=== PATIENT | female | born 1990 | race American Indian/Alaskan Native ===

== ENCOUNTER 2017-04-17 10:19 | Emergency (ER) | payer BC, OTHER ==
--- NOTE | 2017-04-17 11:09 | Emergency Department Report ---
Chief Complaint: Psych Stated Complaint: MENTAL HEALTH PROBLEMS, DEPRESSION Time Seen by Provider: 04/17/17 11:05 - HPI History of Present Illness: Patient here and was brought to the hospital by her aunt. Aunt reports that patient is very depressed and she's been depressed for a while but depression is getting worse over the last 2 days. Patient denies any suicide or homicide ideation. She says she feels very depressed. And is requesting that patient be evaluated and that patient be seen by mental health provider and Aunt wants to make sure that she is fair when they're talking to the patient. - ROS Review of Systems: All systems are negative unless stated in HPI above - Exam Vital Signs: Vital Signs 04/17/17 10:52 Temperature 99.1 F Pulse Rate 91 H Respiratory 18 Rate Blood Pressure 117/81 O2 Sat by Pulse 100 Oximetry Physical Exam: Gen.: This is a 26-year-old female well-nourished well-developed in no acute distress. Psych: Flat affect. Positive depression negative suicide or homicide ideation. MSE screening note: Focused history and physical exam performed. Due to findings the following was ordered: ED Medical Decision Making - Medical Decision Making MDM: Patient screened by provider in triage area. Appropriate protocol initiated and patient to be seen in main ED by ED Disposition for MSE Condition: Stable
[2017-04-17 12:03] LABS: Urine Drugs of Abuse Note Disclamer
[2017-04-17 12:19] LABS: Basophils % (Auto) 0.3 % (0.0-1.8); Eosinophils % (Auto) 2.1 % (0.0-4.3); Hematocrit 40.3 % (30.3-42.9); Hemoglobin 12.8 gm/dl (10.1-14.3); Mean Corpuscular HGB Conc 32 % (30-34); Mean Corpuscular Hemoglobin 27 pg (28-32); Mean Corpuscular Volume 84 fl (79-97); Platelet Count 211 K/mm3 (140-440); Red Blood Count 4.79 M/mm3 (3.65-5.03); Red Cell Distribution Width 13.9 % (13.2-15.2); White Blood Count 5.6 K/mm3 (4.5-11.0)
[2017-04-17 12:28] LABS: Bilirubin,Urine NEG (Negative); Blood,Urine NEG (Negative); Ketones,Urine 20 mg/dL (Negative); Leukocyte Esterase,Urine NEG (Negative); Mucus,Urine 3+ /HPF; Nitrite,Urine NEG (Negative); Protein,Urine <15 mg/dL mg/dL (Negative); WBC,Urine < 1.0 /HPF (0.0-6.0)
[2017-04-17 12:34] LABS: Anion Gap 19 mmol/L; BUN/Creatinine Ratio 11; Blood Urea Nitrogen 8 mg/dL (7-17); Calcium 9.5 mg/dL (8.4-10.2); Carbon Dioxide 20 mmol/L (22-30); Chloride 101.6 mmol/L (98-107); Glucose 82 mg/dL (65-100); Potassium 3.8 mmol/L (3.6-5.0); Sodium 137 mmol/L (137-145)
--- NOTE | 2017-04-17 13:28 | Emergency Department Report ---
ED General Adult HPI - General Chief complaint: Psych Stated complaint: MENTAL HEALTH PROBLEMS, DEPRESSION Time Seen by Provider: 04/17/17 11:05 Source: patient Mode of arrival: Ambulatory Limitations: No Limitations - History of Present Illness Initial comments: She is a 26-year-old female past mental history of depression who presents with depressed mood and feelings of worthlessness. Patient has been feeling down for all of her life. Patient states that she doesn't have any concrete plans to kill herself however she states that normally care if she was gone. Patient is with her aunt who is concerned about patient's depression. Patient states that she's never been on any medications for her depression but she comes to the emergency department because she would like to be on some medications. Patient denies having any nausea, abdominal pain or chest pain. Stress makes her depression worse and nothing makes it better. - Related Data Allergies Allergy/AdvReac Type Severity Reaction Status Date / Time No Known Allergies Allergy Unverified 04/17/17 10:52 ED Review of Systems ROS: Stated complaint: MENTAL HEALTH PROBLEMS, DEPRESSION Other details as noted in HPI Constitutional: denies: chills, fever Eyes: denies: eye pain, eye discharge, vision change ENT: denies: ear pain, throat pain Respiratory: denies: cough, shortness of breath, wheezing Cardiovascular: denies: chest pain, palpitations Endocrine: no symptoms reported Gastrointestinal: denies: abdominal pain, nausea, diarrhea Genitourinary: denies: urgency, dysuria, discharge Musculoskeletal: denies: back pain, joint swelling, arthralgia Skin: denies: rash, lesions Neurological: denies: headache, weakness, paresthesias Psychiatric: depression. denies: anxiety Hematological/Lymphatic: denies: easy bleeding, easy bruising ED Past Medical Hx - Past Medical History Previous Medical History?: Yes Additional medical history: Vaginal delivery x 1 - Surgical History Past Surgical History?: No - Social History Smoking Status: Current Every Day Smoker Substance Use Type: Alcohol, Marijuana ED Physical Exam - General Limitations: No Limitations General appearance: alert, in no apparent distress - Head Head exam: Present: atraumatic, normocephalic - Eye Eye exam: Present: normal appearance - ENT ENT exam: Present: mucous membranes moist - Neck Neck exam: Present: normal inspection - Respiratory Respiratory exam: Present: normal lung sounds bilaterally. Absent: respiratory distress - Cardiovascular Cardiovascular Exam: Present: regular rate, normal rhythm. Absent: systolic murmur, diastolic murmur, rubs, gallop - GI/Abdominal GI/Abdominal exam: Present: soft, normal bowel sounds - Extremities Exam Extremities exam: Present: normal inspection - Back Exam Back exam: Present: normal inspection - Neurological Exam Neurological exam: Present: alert, oriented X3 - Psychiatric Psychiatric exam: Present: normal affect, normal mood - Skin Skin exam: Present: warm, dry, intact, normal color. Absent: rash ED Course Vital Signs 04/17/17 10:52 Temperature 99.1 F Pulse Rate 91 H Respiratory 18 Rate Blood Pressure 117/81 O2 Sat by Pulse 100 Oximetry ED Medical Decision Making - Lab Data Result diagrams: 04/17/17 11:36 04/17/17 11:36 Lab Results 04/17/17 04/17/17 04/17/17 Range/Units 11:36 11:36 11:36 WBC 5.6 (4.5-11.0) K/mm3 RBC 4.79 (3.65-5.03) M/mm3 Hgb 12.8 (10.1-14.3) gm/dl Hct 40.3 (30.3-42.9) % MCV 84 (79-97) fl MCH 27 L (28-32) pg MCHC 32 (30-34) % RDW 13.9 (13.2-15.2) % Plt Count 211 (140-440) K/mm3 Lymph % (Auto) 24.9 (13.4-35.0) % [place] % (Auto) 11.3 H (0.0-7.3) % Eos % (Auto) 2.1 (0.0-4.3) % Baso % (Auto) 0.3 (0.0-1.8) % Lymph # 1.4 (1.2-5.4) K/mm3 [place] # 0.6 (0.0-0.8) K/mm3 Eos # 0.1 (0.0-0.4) K/mm3 Baso # 0.0 (0.0-0.1) K/mm3 Seg Neutrophils % 61.4 (40.0-70.0) % Seg Neutrophils # 3.4 (1.8-7.7) K/mm3 Sodium 137 (137-145) mmol/L Potassium 3.8 (3.6-5.0) mmol/L Chloride 101.6 (98-107) mmol/L Carbon Dioxide 20 L (22-30) mmol/L Anion Gap 19 mmol/L BUN 8 (7-17) mg/dL Creatinine 0.7 (0.7-1.2) mg/dL Estimated GFR > 60 ml/min BUN/Creatinine Ratio 11 % Glucose 82 (65-100) mg/dL Calcium 9.5 (8.4-10.2) mg/dL Urine Color (Yellow) Urine Turbidity (Clear) Urine pH (5.0-7.0) Ur Specific [place] (1.003-1.030) Urine Protein (Negative) mg/dL Urine Glucose (UA) (Negative) mg/dL Urine Ketones (Negative) mg/dL Urine Blood (Negative) Urine Nitrite (Negative) Urine Bilirubin (Negative) Urine Urobilinogen (<2.0) mg/dL Ur Leukocyte Esterase (Negative) Urine WBC (Auto) (0.0-6.0) /HPF Urine RBC (Auto) (0.0-6.0) /HPF U Epithel Cells (Auto) (0-13.0) /HPF Calcium Oxalate Crystal Hyaline Casts /LPF Urine Mucus /HPF Urine HCG, Qual (Negative) Urine Opiates Screen Urine Methadone Screen Ur Barbiturates Screen Ur Phencyclidine Scrn Ur Amphetamines Screen U Benzodiazepines Scrn Urine Cocaine Screen U Marijuana (THC) Screen Drugs of Abuse Note Plasma/Serum Alcohol < 0.01 (0-0.07) gm% 04/17/17 04/17/17 Range/Units 11:58 11:58 WBC (4.5-11.0) K/mm3 RBC (3.65-5.03) M/mm3 Hgb (10.1-14.3) gm/dl Hct (30.3-42.9) % MCV (79-97) fl MCH (28-32) pg MCHC (30-34) % RDW (13.2-15.2) % Plt Count (140-440) K/mm3 Lymph % (Auto) (13.4-35.0) % [place] % (Auto) (0.0-7.3) % Eos % (Auto) (0.0-4.3) % Baso % (Auto) (0.0-1.8) % Lymph # (1.2-5.4) K/mm3 [place] # (0.0-0.8) K/mm3 Eos # (0.0-0.4) K/mm3 Baso # (0.0-0.1) K/mm3 Seg Neutrophils % (40.0-70.0) % Seg Neutrophils # (1.8-7.7) K/mm3 Sodium (137-145) mmol/L Potassium (3.6-5.0) mmol/L Chloride (98-107) mmol/L Carbon Dioxide (22-30) mmol/L Anion Gap mmol/L BUN (7-17) mg/dL Creatinine (0.7-1.2) mg/dL Estimated GFR ml/min BUN/Creatinine Ratio % Glucose (65-100) mg/dL Calcium (8.4-10.2) mg/dL Urine Color Yellow (Yellow) Urine Turbidity Clear (Clear) Urine pH 5.0 (5.0-7.0) Ur Specific [place] 1.028 (1.003-1.030) Urine Protein <15 mg/dl (Negative) mg/dL Urine Glucose (UA) Neg (Negative) mg/dL Urine Ketones 20 (Negative) mg/dL Urine Blood Neg (Negative) Urine Nitrite Neg (Negative) Urine Bilirubin Neg (Negative) Urine Urobilinogen 4.0 (<2.0) mg/dL Ur Leukocyte Esterase Neg (Negative) Urine WBC (Auto) < 1.0 (0.0-6.0) /HPF Urine RBC (Auto) 4.0 (0.0-6.0) /HPF U Epithel Cells (Auto) 3.0 (0-13.0) /HPF Calcium Oxalate Crystal 3+ Hyaline Casts 1 /LPF Urine Mucus 3+ /HPF Urine HCG, Qual Negative (Negative) Urine Opiates Screen Presumptive negative Urine Methadone Screen Presumptive negative Ur Barbiturates Screen Presumptive negative Ur Phencyclidine Scrn Presumptive negative Ur Amphetamines Screen Presumptive negative U Benzodiazepines Scrn Presumptive positive Urine Cocaine Screen Presumptive negative U Marijuana (THC) Screen Presumptive negative Drugs of Abuse Note Disclamer Plasma/Serum Alcohol (0-0.07) gm% - Medical Decision Making Cdx: Major depressive disorder Ddx: Substance induced mood disorder, electrolyte abnormality, hypothyroidism I will get CBC, CMP, mental health consult I will sign a 1013 on this patient as patient has feelings of worthlessness and is a danger to herself until a psychiatrist clears her. Discussed plan with patient's on she agrees with plan. Critical care attestation.: If time is entered above; I have spent that time in minutes in the direct care of this critically ill patient, excluding procedure time. ED Disposition Clinical Impression: MDD (major depressive disorder) Qualifiers: Major depression recurrence: recurrent Active/Remission status: currently active Major depression episode severity: moderate Qualified Code(s): F33.1 - Major depressive disorder, recurrent, moderate Disposition: DC/TX-65 PSY HOSP/PSY UNIT Is pt being admited?: No Does the pt Need Aspirin: No Condition: Stable Referrals: PRIMARY CARE, [Primary Care Provider] - 3-5 Days
[2017-04-17 17:10] VITALS: BP 92/59
--- NOTE | 2017-04-17 20:53 | Emergency Department Report ---
Blank Doc - Documentation Documentation: I went to reevaluate this patient as the psychiatric team saw her and rescinded the 1013. The patient says that she has a long-standing and possibly worsening depression but she does not have any suicidal or homicidal ideations. She is awake, appropriate, AAO 3 without any deficits or signs of acute psychosis. I can respect the fact that she says that she is looking to get help and believes that she needs to be on some type of a medication for her depression. She will be given referrals for the [facility] facility. She lives with her aunt and says that she feels safe in that environment and feels that her family also feels safe and does provide some support to her. Her vital signs stable.
== END 2017-04-17 21:27 | disposition home or self-care (01) ==
LOC: ED 10:19 → EEVIPCON 10:19 → ED 21:27
DX: F32.9 Major depressive disorder, single episode, unspecified (principal); F17.210 Nicotine dependence, cigarettes, uncomplicated; F12.10 Cannabis abuse, uncomplicated
CPT/HCPCS: 36415; 80048; 80307; 81001; 81025; 85025; 99284; G0480; 80320

== ENCOUNTER 2017-04-19 19:03 | Emergency (ER) | payer OTHER ==
[2017-04-19 19:41] LABS: Basophils % (Auto) 0.4 % (0.0-1.8); Eosinophils % (Auto) 3.9 % (0.0-4.3); Hematocrit 37.9 % (30.3-42.9); Hemoglobin 12.4 gm/dl (10.1-14.3); Mean Corpuscular HGB Conc 33 % (30-34); Mean Corpuscular Hemoglobin 28 pg (28-32); Mean Corpuscular Volume 84 fl (79-97); Platelet Count 206 K/mm3 (140-440); White Blood Count 5.4 K/mm3 (4.5-11.0)
[2017-04-19 20:01] LABS: Anion Gap 18 mmol/L; BUN/Creatinine Ratio 17; Blood Urea Nitrogen 10 mg/dL (7-17); Calcium 9.2 mg/dL (8.4-10.2); Carbon Dioxide 23 mmol/L (22-30); Chloride 103.7 mmol/L (98-107); Glucose 85 mg/dL (65-100); Potassium 3.8 mmol/L (3.6-5.0); Sodium 141 mmol/L (137-145)
--- NOTE | 2017-04-20 00:04 | Emergency Department Report ---
HPI - General Chief Complaint: Psych Time Seen by Provider: 04/19/17 23:40 - HPI HPI: Room 12 The patient is a 26-year-old female presenting with the chief complaint suicidal ideation. Patient is to suicidal ideation intermittently for one week. When asked if she had a plan and the patient really said no but then stated she thought about slitting her wrists. Patient denies any active attempt at after trying to harm herself. Patient apparently came to the ED 2 days ago for the same and was placed under 1013 which was later rescinded. The patient's aunt (Jasmin Mcleod [phone]) has accompanied the patient to the ED Location: Mental state Duration: Intermittent times one week Quality: Suicidal Severity: Severe Modifying factors: [see above] Context: [see above] Mode of transportation: [not driving] ED Past Medical Hx - Past Medical History Previous Medical History?: Yes Hx Psychiatric Treatment: Yes (no formal diagnosis) Additional medical history: Vaginal delivery x 1 - Surgical History Past Surgical History?: No - Family History Family history: no significant - Social History Smoking Status: Current Every Day Smoker (1/2 pack per day) Substance Use Type: None (denies illicit drug use) ED Review of Systems ROS: Stated complaint: MENTAL HEALTH ISSUES Other details as noted in HPI Psychiatric: suicidal thoughts Physical Exam - Physical Exam Physical Exam: GENERAL: The patient is well-developed well-nourished female sitting on stretcher not appearing to be in acute distress. [] HEENT: Normocephalic. Atraumatic. Extraocular motions are intact. Patient has moist mucous membranes. NECK: Supple. Trachea midline. There is no nuchal rigidity CHEST/LUNGS: Clear to auscultation. There is no respiratory distress noted. HEART/CARDIOVASCULAR: Regular. There is no tachycardia. There is no gallop rub or murmur. ABDOMEN: Abdomen is soft, nontender. Patient has normal bowel sounds. There is no abdominal distention. SKIN: There is no rash. There is no edema. There is no diaphoresis. NEURO: The patient is awake, alert, and oriented. The patient is cooperative. The patient has normal speech and gait. MUSCULOSKELETAL: There is no evidence of acute injury. ED Medical Decision Making - Lab Data Result diagrams: 04/19/17 19:31 04/19/17 19:31 Laboratory Tests 04/19/17 04/19/17 04/19/17 19:31 19:31 19:31 WBC RBC Hgb Hct MCV MCH MCHC RDW Plt Count Lymph % (Auto) [place] % (Auto) Eos % (Auto) Baso % (Auto) Lymph # [place] # Eos # Baso # Seg Neutrophils % Seg Neutrophils # Sodium 141 Potassium 3.8 Chloride 103.7 Carbon Dioxide 23 Anion Gap 18 BUN 10 Creatinine 0.6 L Estimated GFR > 60 BUN/Creatinine Ratio 17 Glucose 85 Calcium 9.2 HCG, Qual Negative Salicylates Acetaminophen Plasma/Serum Alcohol < 0.01 04/19/17 04/20/17 04/20/17 19:31 00:03 00:03 WBC 5.4 RBC 4.50 Hgb 12.4 Hct 37.9 MCV 84 MCH 28 MCHC 33 RDW 14.0 Plt Count 206 Lymph % (Auto) 27.8 [place] % (Auto) 11.9 H Eos % (Auto) 3.9 Baso % (Auto) 0.4 Lymph # 1.5 [place] # 0.6 Eos # 0.2 Baso # 0.0 Seg Neutrophils % 56.0 Seg Neutrophils # 3.0 Sodium Potassium Chloride Carbon Dioxide Anion Gap BUN Creatinine Estimated GFR BUN/Creatinine Ratio Glucose Calcium HCG, Qual Salicylates < 0.3 L Acetaminophen < 15.0 Plasma/Serum Alcohol - Differential Diagnosis suicidal ideation Critical care attestation.: If time is entered above; I have spent that time in minutes in the direct care of this critically ill patient, excluding procedure time. ED Disposition Clinical Impression: Suicidal ideation Disposition: DC/TX-65 PSY HOSP/PSY UNIT Is pt being admited?: No Does the pt Need Aspirin: No Condition: Serious Referrals: PRIMARY CARE, [Primary Care Provider] - 3-5 Days Time of Disposition: 00:15 (awaiting acceptance)
[2017-04-20 12:46] LABS: Alanine Aminotransferase 8 units/L (7-56); Alkaline Phosphatase 75 units/L (35-129)
--- NOTE | 2017-04-20 12:46 | Consultation ---
History of Present Illness - Reason for Consult Consult date: 04/20/17 Reason for consult: Mental Health Evaluation Requesting physician: BALDEMAR CAIN - Chief Complaint Chief complaint: "I was crazy yesterday" - History of Present Psychiatric Illness The patient is a 26-year-old female presenting with the chief complaint suicidal ideation. Today patient is calm and cooperative during the assessment. She stated that the last couple weeks has been "weird." Initially the patient was seen on the Mar in the ER for depression. She was discharged with outpatient psy services information. She stated not sleeping for several days with racing thoughts. She stated experiencing this type of episode in the past with a feeling of being depressed on day 4 or 5. She stated that she cannot figure out what is wrong with her, so lately she has been suicidal. Currently, she denies SI's, but still have the thoughts. She denies HI's and AVH's. She denies a poor appetite. She denies recreational drug use and alcohol consumption (etoh). Medications and Allergies Allergies Allergy/AdvReac Type Severity Reaction Status Date / Time No Known Allergies Allergy Unverified 04/17/17 10:52 Home Medications Medication Instructions Recorded Confirmed Last Taken Type No Known Home Medications [No 04/20/17 04/20/17 Unknown History Reported Home Medications] Past psychiatric history - Past Medical History Past Medical History: other (Vaginal delivery x 1) Past Surgical History: No surgical history - past Psychiatric treatment and history psychiatric treatment history: Per the patient seen a therapist in the past. Fam psy hx of Bipolar DO. - Social History Social history: lives with family (11th grade education) Mental Status Exam - Vital signs Last Vital Signs Temp 99.1 F 04/20/17 09:04 Pulse 86 04/20/17 09:04 Resp 18 04/20/17 09:07 BP 105/64 04/20/17 09:04 Pulse Ox 96 04/20/17 09:07 - Exam Narrative exam: MSE: Appearance: calm, cooperative Behavior: regular eye contact Speech: regular rate and tone Mood: "okay" withdrawn Affect: congruent to mood Thought Process: circumstantial Thought Content: denies SI/HI's and AVH's Motor Activity: ambulatory Cognition: A/O x3 Insight: variable Judgment: variable Results Result Diagrams: 04/19/17 19:31 04/19/17 19:31 Abnormal lab results 04/19/17 04/19/17 04/20/17 Range/Units 19:31 19:31 00:03 [place] % (Auto) 11.9 H (0.0-7.3) % Creatinine 0.6 L (0.7-1.2) mg/dL Salicylates < 0.3 L (2.8-20.0) mg/dL All other labs normal. Assessment and Plan Assessment and plan: Impression: Bipolar DO. Today patient is calm and cooperative during the assessment. Patient has suicidal thoughts. DDx: R/O MDD Recommendation/Plan: Continue 1013 with placement to inpatient psy services. Start Depakote 500 mg PO BID for mood.
--- NOTE | 2017-04-21 10:29 | Progress Note ---
Subjective - Reason for Consult Consult date: 04/21/17 Reason for consult: Psychiatry Follow-up - Chief Complaint Chief complaint: "I feel better" The patient is a 26-year-old female presenting with the chief complaint suicidal ideation. Today patient is calm and cooperative during the assessment. She stated that she finally got a good night rest. She stated that she spoke with a family member and her child last night. She denies SI/HI's and AVH's. She denies any side effects of her medications. Mental Status Exam - Vital signs Last Vital Signs Temp 98.6 F 04/20/17 20:18 Pulse 81 04/20/17 20:18 Resp 18 04/20/17 20:18 BP 106/56 04/20/17 20:18 Pulse Ox 98 04/20/17 20:18 - Exam Narrative exam: MSE: Appearance: calm, cooperative Behavior: regular eye contact Speech: regular rate and tone Mood: "better" Affect: congruent to mood Thought Process: linear Thought Content: denies SI/HI's and AVH's Motor Activity: ambulatory Cognition: A/O x3 Insight: fair Judgment: fair Assessment and Plan Impression: Bipolar DO. Today patient is calm and cooperative during the assessment. DDx: R/O MDD Recommendation/Plan: Evaluate 1013 within 24 hours to determine proper dispo. Continue Depakote 500 mg PO BID for mood.
--- NOTE | 2017-04-22 16:26 | Progress Note ---
Subjective - Reason for Consult Consult date: 04/22/17 Reason for consult: psychiatric follow up - Chief Complaint Chief complaint: "I feel better" The patient is a 26-year-old female presenting with the chief complaint suicidal ideation. Today patient is calm and cooperative during the assessment. She says she needs to stay longer because she is sorting her thoughts. She talked about how she "snapped." She denies SI/HI's and AVH's. She denies any side effects of her medications. Mental Status Exam - Vital signs Last Vital Signs Temp 98.2 F 04/21/17 22:00 Pulse 80 04/21/17 22:00 Resp 16 04/21/17 22:00 BP 120/60 04/21/17 22:00 Pulse Ox 96 04/21/17 22:00 - Exam Narrative exam: MSE: Appearance: calm, cooperative Behavior: regular eye contact Speech: regular rate and tone Mood: "better" Affect: congruent to mood Thought Process: logical, circumstantial Thought Content: denies SI/HI's and AVH's Motor Activity: ambulatory Cognition: A/O x3 Insight: fair Judgment: fair Assessment and Plan Impression: Bipolar DO. Today patient is calm and cooperative during the assessment. DDx: R/O MDD Recommendation/Plan: She is awaiting inpatient placement but will be reassessed in 24 hours to determine need for continued hold. Continue Depakote 500 mg PO BID for mood.
--- NOTE | 2017-04-23 17:50 | Progress Note ---
Subjective - Reason for Consult Consult date: 04/23/17 Reason for consult: follow up - Chief Complaint Chief complaint: "I'm happy and blessed." The patient is a 26-year-old female presenting with the chief complaint suicidal ideation. Today patient is calm and cooperative during the assessment. She denies SI/HI's and AVH's. Her sleep and appetite are fair. She has been reading to pass the time. She denies any side effects of her medications. She plans to follow up with mental health treatment in [place]. She will fly with her aunt to [place] to stay with her mother. Mental Status Exam - Vital signs Last Vital Signs Temp 98.8 F 04/23/17 08:30 Pulse 88 04/23/17 08:30 Resp 18 04/23/17 08:30 BP 102/72 04/23/17 08:30 Pulse Ox 100 04/23/17 08:30 - Exam Narrative exam: MSE: Appearance: calm, cooperative Behavior: regular eye contact Speech: regular rate and tone Mood: "happy" Affect: congruent to mood Thought Process: logical, circumstantial Thought Content: denies SI/HI's and AVH's Motor Activity: ambulatory Cognition: A/O x3 Insight: fair Judgment: fair Assessment and Plan Impression: Bipolar DO. Today patient is calm and cooperative during the assessment. She is a low risk of harm to herself. She has maintained denial of suicidal ideation. She is open and engaging on interview. She expresses future and goal oriented thinking and planning. DDx: R/O MDD Recommendation/Plan: Rescind 1013. She is agreeable to ongoing mental health treatment in [place]. She will be staying with her mother. Her aunt and mother communicated with staff the plan for the aunt to fly with Qi to [place] to meet her mother. From there, she will be going to mental health treatment in [place]. Continue Depakote 500 mg PO BID for mood.
--- NOTE | 2017-04-23 18:12 | Emergency Department Report ---
Blank Doc - Documentation Documentation: Patient has been in the ED for several days and receive psychiatric evaluation. At this time patient is calm and cooperative without any suicidal or homicidal ideation. 1013 will be rescinded as recommended. Patient plans to follow-up with her treatment plan and [place]. Depakote 500 mg twice a day will be prescribed as recommended by psychiatry. Diagnosis bipolar disorder rule out major depressive disorder.
[2017-04-23 18:37] VITALS: BP 110/78
== END 2017-04-23 18:36 ==
LOC: ED 19:03 → EEVIPCON 19:03 → ED 04-23 18:36
DX: R45.851 Suicidal ideations (principal); F31.9 Bipolar disorder, unspecified; F17.200 Nicotine dependence, unspecified, uncomplicated
CPT/HCPCS: 36415; 80048; 84075; 84450; 84460; 84703; 85025; 99284; G0480; 80320